=== PATIENT | male | born 1935 | race Caucasian/White ===

== ENCOUNTER → 2021-06-02 08:41 | Outpatient (CLI) | payer MEDICARE, BC, SELFPAY ==
--- NOTE | 2021-06-02 08:51 | XR_ITS ---
FINAL REPORT CLINICAL HISTORY: knee pain FINDINGS: 4 views of the left knee were obtained. There is no acute fracture or dislocation. There is marked narrowing of the medial compartment joint space with subchondral sclerosis and osteophyte formation. There is varus angulation of the knee. There are small osteophytes along the undersurface of the patella. IMPRESSION: Advanced osteoarthritis. Reviewed, Interpreted and Dictated by Handy Cade MD Transcribed by Tushar Garcia Authenticated by Handy Cade MD on 06/02/2021 10:36:[address] [facility]
--- NOTE | 2021-06-02 08:51 | XR_ITS ---
FINAL REPORT CLINICAL HISTORY: knee pain FINDINGS: 4 views of the right knee were obtained. There is no acute fracture or dislocation. There is marked narrowing of the medial compartment joint space with subchondral sclerosis and osteophyte formation. There is varus angulation of the knee. There are small osteophytes along the undersurface of the patella. IMPRESSION: Advanced osteoarthritis. Reviewed, Interpreted and Dictated by Handy Cade MD Transcribed by Tushar Garcia Authenticated by Handy Cade MD on 06/02/2021 10:36:27 AM [facility]
== END ==
PROVIDERS: PCP Physician Assistant; Visit Provider Orthopaedic Surgery
DX: M25.561 Pain in right knee (principal); M25.562 Pain in left knee
CPT/HCPCS: 73564

== ENCOUNTER 2021-07-14 09:52 | Outpatient (RCR) | payer MEDICARE, BC, SELFPAY | END 2021-07-14 10:29 | disposition home or self-care (01) | LOC: PT 09:52 | PROVIDERS: Visit Provider Orthopaedic Surgery | DX: M25.562 Pain in left knee (principal); M25.561 Pain in right knee | CPT/HCPCS: 97760 ==

== ENCOUNTER → 2021-10-12 08:32 | Outpatient (CLI) | payer MEDICARE, BC, SELFPAY ==
[2021-10-12 14:24] LABS: Chloride 104 mmol/L (98-107)
[2021-10-12 14:25] LABS: Sodium 137 mmol/L (136-145)
[2021-10-12 14:27] LABS: Alanine Aminotransferase 19 U/L (12-78); Aspartate Amino Transferase 26 U/L (17-59); Blood Urea Nitrogen 13 mg/dl (9-20); Carbon Dioxide 27 mmol/L (22.0-30.0); Estimated Glomerular Filt Rate 92 ml/min (>60); GFR (African American) 111 ML/MIN (>60)
[2021-10-12 14:28] LABS: Albumin Level 4.1 g/dl (3.5-5.0); Albumin/Globulin Ratio 1.5 (1.1-1.8); Alkaline Phosphatase 88 U/L (38-126); Bilirubin,Total 1.9 mg/dl (0.2-1.3); Calcium 10.5 mg/dl (8.4-10.2); Chol/HDL Ratio 2.8 (1-3.5); Cholesterol 156 mg/dl (140-200); Globulin 2.8 g/dL (1.3-3.2); Glucose 117 mg/dl (74-100); HDL Cholesterol 56 mg/dl (40-60); Total Protein,Serum 6.9 g/dl (6.3-8.2); Triglycerides 81 mg/dl (30-150); VLDL Cholesterol 16 mg/dL (0-40)
[2021-10-12 14:39] LABS: Direct LDL Cholesterol 75.81 mg/dL (100-129)
[2021-10-12 15:53] LABS: Anion Gap 10.5 mEq/L (5-15); Potassium 4.5 mmoL/L (3.5-5.1)
== END ==
PROVIDERS: Visit Provider Internal Medicine Cardiovascular Disease
DX: I25.10 Atherosclerotic heart disease of native coronary artery without angina pectoris (principal)
CPT/HCPCS: 36415; 80053; 80061

== ENCOUNTER → 2022-09-19 08:28 | Outpatient (CLI) | payer MEDICARE, BC, SELFPAY ==
[2022-09-19 09:39] LABS: Alanine Aminotransferase 22 U/L (12-78); Albumin Level 4.3 g/dl (3.5-5.0); Albumin/Globulin Ratio 1.7 (1.1-1.8); Alkaline Phosphatase 94 U/L (38-126); Anion Gap 13.7 mEq/L (5-15); Aspartate Amino Transferase 27 U/L (17-59); Bilirubin,Total 1.1 mg/dl (0.2-1.3); Blood Urea Nitrogen 24 mg/dl (9-20); Calcium 9.7 mg/dl (8.4-10.2); Carbon Dioxide 28 mmol/L (22.0-30.0); Chloride 103 mmol/L (98-107); Chol/HDL Ratio 2.9 (1-3.5); Cholesterol 156 mg/dl (140-200); Estimated Glomerular Filt Rate 80 ml/min (>60); GFR (African American) 97 ML/MIN (>60); Globulin 2.6 g/dL (1.3-3.2); Glucose 98 mg/dl (74-100); HDL Cholesterol 54 mg/dl (40-60); Potassium 4.7 mmoL/L (3.5-5.1); Sodium 140 mmol/L (136-145); Total Protein,Serum 6.9 g/dl (6.3-8.2); Triglycerides 118 mg/dl (30-150); VLDL Cholesterol 24 mg/dL (0-40)
[2022-09-19 09:50] LABS: Direct LDL Cholesterol 74.23 mg/dL (100-129)
== END ==
PROVIDERS: Visit Provider Nurse Practitioner Family
DX: I10 Essential (primary) hypertension (principal)
CPT/HCPCS: 36415; 80053; 80061

== ENCOUNTER 2023-09-06 08:25 | Outpatient (CLI) | payer MEDICARE, BC, SELFPAY ==
[2023-09-06 10:12] LABS: Cholesterol 179 mg/dl (140-200); HDL Cholesterol 89 mg/dl (40-60); Triglycerides 92 mg/dl (30-150); VLDL Cholesterol 18 mg/dL (0-40)
[2023-09-06 10:22] LABS: Direct LDL Cholesterol 84.63 mg/dL (100-129)
[2023-09-10 15:12] LABS: Alanine Aminotransferase 20 U/L (12-78); Albumin Level 4.1 g/dl (3.5-5.0); Albumin/Globulin Ratio 1.5 (1.1-1.8); Alkaline Phosphatase 77 U/L (38-126); Anion Gap 15.7 mEq/L (5-15); Aspartate Amino Transferase 22 U/L (17-59); Bilirubin,Total 1.4 mg/dl (0.2-1.3); Blood Urea Nitrogen 29 mg/dl (9-20); Calcium 10.9 mg/dl (8.4-10.2); Carbon Dioxide 25 mmol/L (22.0-30.0); Chloride 101 mmol/L (98-107); Estimated Glomerular Filt Rate 57 ml/min (>60); GFR (African American) 69 ML/MIN (>60); Globulin 2.8 g/dL (1.3-3.2); Glucose 98 mg/dl (74-100); Potassium 4.7 mmoL/L (3.5-5.1); Sodium 137 mmol/L (136-145); Total Protein,Serum 6.9 g/dl (6.3-8.2)
== END 2023-09-06 23:59 | disposition home or self-care (01) ==
LOC: LAB 08:27
PROVIDERS: Visit Provider Internal Medicine Cardiovascular Disease
DX: I10 Essential (primary) hypertension (principal)
CPT/HCPCS: 36415; 80053; 80061

== ENCOUNTER 2024-08-06 07:52 | Outpatient (CLI) | payer MEDICARE, BC, SELFPAY ==
[2024-08-06 09:10] LABS: Albumin Level 4.1 g/dl (3.5-5.0); Chloride 107 mmol/L (98-107); Potassium 4.8 mmoL/L (3.5-5.1); Sodium 140 mmol/L (136-145)
[2024-08-06 09:12] LABS: Blood Urea Nitrogen 20 mg/dl (9-20); Estimated Glomerular Filt Rate 63 ml/min (>60); GFR (African American) 77 ML/MIN (>60)
[2024-08-06 09:13] LABS: Alanine Aminotransferase 14 U/L (12-78); Albumin/Globulin Ratio 1.6 (1.1-1.8); Alkaline Phosphatase 81 U/L (38-126); Anion Gap 11.8 mEq/L (5-15); Aspartate Amino Transferase 22 U/L (17-59); Bilirubin,Total 1.5 mg/dl (0.2-1.3); Calcium 10.6 mg/dl (8.4-10.2); Carbon Dioxide 26 mmol/L (22.0-30.0); Globulin 2.5 g/dL (1.3-3.2); Glucose 100 mg/dl (74-100); Total Protein,Serum 6.6 g/dl (6.3-8.2)
== END 2024-08-06 23:59 | disposition home or self-care (01) ==
LOC: LAB 07:56
PROVIDERS: Visit Provider Nurse Practitioner Family
DX: I10 Essential (primary) hypertension (principal)
CPT/HCPCS: 36415; 80053

== ENCOUNTER 2024-09-30 13:32 | Outpatient (POV) | payer MEDICARE, BC, SELFPAY ==
--- OUTSIDE RECORDS SUMMARY | 2024-08-26 10:00 | XMS_ITS | Encounter Summary ---
Author Organization [facility] Address [address] [place] [address] Care Team Providers Care Lay Brother Name Role Phone Unavailable Primary Care Provider Unavailabl e Reason for Visit * Reason Comments Knee Pain Bilateral Knee Pain Encounter Details Date Type Department Care Team (Late st Contact Info) Description 08/26/2024 10:00 AM EDT Office Visit [facility] Orthopedics - [address] [phone] Yvonne Bowen PA-C [address] [place] [phone] Pain in both knees, unspecified chronicity (Primary Dx); Bilateral primary osteoarthritis of knee Social History Tobacco Use Types Packs/Day Years Used Date Smoking Tobacco: Never Smokeless Tobacco: Never Tobacco Cessation:Counseling Given: Not Answered Alcohol Use Standard Drinks/Week Comments Never 0 (1 standard drink = 0.6 oz pur e alcohol) Sex and Gender Information Value Date Recorded Sex Assigned at Not on file Legal Sex Male 2:06 PM CDT Gender Identity Not on file Sexual Orientation Not on file documented as of this encounter Last Filed Vital Signs Vital Sign Reading Time Taken Comments Blood Pressure 134/76 08/26/2024 10:33 AM EDT Pulse 64 08/26/2024 10:33 AM EDT Temperature - - Respiratory Rate - - Oxygen Saturation - - Inhaled Oxygen Concentration - - Weight 68.9 kg (152 lb) 08/26/2024 10:33 AM EDT Height 180.3 cm (5' 11 ) 08/26/2024 10:33 AM EDT Body Mass Index 21.2 08/26/2024 10:33 AM EDT documented in this encounter Progress Notes * Yvonne Bowen PA-C - 08/26/2024 10:00 AM EDT Images from the original note were not included. NAME: Annemarie Jewell CSN: [id number] : 1935 PCP: No primary care provider on file. REASON FOR VISIT Knee Pain (Bilateral Knee Pain) Is this Worker's Comp? No HPI Annemarie Jewell is a 88 y.o. male. New patient presents for bilateral knee pain. Patient reports he would like to discuss submitting for gel injections. Patient denies trauma, surgery, but has had injections in bilateral knees. Patient reports sharp pain medially and lateral to patella while standing and ambulating. Patient reports buckling of right knee. Patient reports grinding when rising from seated position. Patient denies popping or catching. Patient reports taking Tylenol for pain. Patient reports using heat, but no ice. Patient reports using Emu Blue with some relief. Patient reports wearing sleeve braces. Patient ambulates without assistance devices. He states he had hyaluronic acid injections before without relief. Patient reports 0/10 on pain scale, which increases to 7 while ambulating. CURRENT MEDICATIONS Current Outpatient Medications Medication Instructions diclofenac sodium 4 g, topical, 4 times daily metoprolol succinate (TOPROL-XL) 12.5 mg, Daily pravastatin (PRAVACHOL) 20 mg, Daily ALLERGIES No Known Allergies PAST MEDICAL/SURGICAL HISTORY Past Medical History: Diagnosis Date High cholesterol Hypertension No past surgical history on file. SOCIAL HISTORY Social History Tobacco Use Smoking status: Never Smokeless tobacco: Never Substance Use Topics Alcohol use: Never FAMILY HISTORY Family History Problem Relation Name Age of Onset Arthritis Other Gout Other REVIEW OF SYSTEMS General: No recent fever or chills, no recent weight loss or weight gain, no insomnia HEENT: No change in vision, no glasses/contacts, no hearing loss, no tinnitus, no vertigo, no congestion/sinus issues CVS: No chest pain, no palpitations, no edema, no varicose veins Resp: No dyspnea, no wheezing, no cough, no hemoptysis GI: No dysphagia, no nausea, no vomiting, no heart burn, no constipation, no diarrhea : No dysuria, no hematuria, no nocturia, no history of chronic UTI Musculoskeletal: See HPI Derm: No rash, no abrasions, no skin discoloration, no history or MRSA Neuro: See HPI Endo: No cold/heat intolerance Heme: No abnormal bruising or bleeding Psych: No depression, no anxiety, no fatigue, no mood swings Scribe Attestation: IJessica RTR acted as a scribe and transcribed components of the currentencounter under the direction of the Attending Provider. I have not been involved in providing any clinical treatments or patient care. Electronically Signed, NEVAEH Drummond OBJECTIVE Vitals: 08/26/24 1033 BP: 134/76 Pulse: 64 Weight: 68.9 kg (152 lb) Height: 1.803 m (5' 11 ) Ortho Exam Bilateral Knee Exam General: Awake, Alert, Oriented x3, Well developed Appearance: - effusion, - localized swelling, - deformity, -masses Tenderness to palpation: + Medial joint line, -Lateral joint line, - Patellofemoral joint, -MCL, -LCL, -Posterior, - Quad Tendon, - Patellar Tendon, -Hamstring, - Gastrocnemius ROM: 130 Flexion, 0 Extension, +crepitus, Strength: 4/5 Testing: -Valgus stress, -Varus stress Neurovascular: NVI, -Homans Skin: normal appearance with no discoloration or wounds Gait: abnormal , mild limp IMAGING/OUTSIDE REPORTS X-Rays were performed and interpreted today in office of bilateral knee, 2 views weight bearing revealing: X-ray knee bilateral PA and lateral 2 weightbearing views of bilateral knees performed in office reveal severe, bone on bone medial and patellofemoral joint space narrowing. Tricompartmental osteophyte formation and sclerosis of the medial joint spaces. Genu varum deformity. Vascular calcifications noted. No evidence of acute osseous abnormality. ASSESSMENT Problem List Items Addressed This Visit None Visit Diagnoses Pain in both knees, unspecified chronicity - Primary Relevant Medications diclofenac sodium 1 % gel Other Relevant Orders X-ray knee bilateral PA and lateral (Completed) Bilateral primary osteoarthritis of knee Relevant Medications diclofenac sodium 1 % gel I discussed with patient in depth the options for treatment of osteoarthritis of the knee. Treatment options that include gentle, low-impact exercise, weight loss, physical therapy to promote quadriceps strengthening, the use of NSAIDs, intra-articular steroid injections, viscosupplementation, and genicular nerve blocks were all discussed. I also discussed that if all conservative measures fail to provide satisfactory relief of symptoms, we can discuss surgical options to include arthroplasty of the knee. PLAN Return if symptoms worsen or fail to improve. Rest Ice Elevate Return to Clinic if new or worse symptoms occur Topical medication ordered WBAT Hold on ORDONEZ injections due to prior history of little relief with ORDONEZ injections. He would like to try topical medication instead. Will call if his pain worsens Scribe Attestation: Sinan Sanchez RTR acted as a scribe and transcribed components of the current encounter under the direction of the Attending Provider. I have not been involved in providing any clinical treatments or patient care. Electronically Signed, NEVAEH Amador Taylor Elam, PA-C attest that I have examined the above patient. I have dictated the exam, diagnosis, and plan to the scribe listed above to be transcribed into this document. I have supplemented the above documentation as warranted. I attest that I have reviewed the above documentation in its entirety and concur. Electronically Signed, Yvonne Bowen PA-C 08/26/2024 1:38 PM EDT Pradeep Hall: Skylar ANDRADE / JESS is undergoing an EHR transition as of this date of service. There may be a delay in uploading older paper and EHR chart data to this new system. The above encounter has been documented to the best of the provider's working knowledge of the EHR in conjunction with medical information provided by the patient (and/or the patient's family member). documented in this encounter Plan of Treatment Not on file documented as of this encounter Procedures Procedure Name Priority Date/Time Associated Diagnosis Comments XR KNEE BILATERAL PA AND LATERAL Routine 08/26/2024 10:30 AM EDT Pain in both knees, unspecified chronicity documented in this encounter Results * X-ray knee bilateral PA and lateral (08/26/2024 10:30 AM EDT) Anatomical Region Laterality Modality Thigh, Knee, Leg X-Ray Narrative 08/26/2024 11:28 AM EDT 2 weightbearing views of bilateral knees performed in office reveal severe, bone on bone medial and patellofemoral joint space narrowing. Tricompartmental osteophyte formation and sclerosis of the medial joint spaces. Genu varum deformity. Vascular calcifications noted. No evidence of acute osseous abnormality. us Yvonne Bowen PA-C IMSteve DIAGNOSTIC IMAGING ORDERABL ES Final Result documented in this encounter Visit Diagnoses Diagnosis Pain in both knees, unspecified chronicity- Primary Bilateral primary osteoarthritis of knee documented in this encounter
--- OUTSIDE RECORDS SUMMARY | 2024-08-26 10:25 | XMS_ITS | Encounter Summary ---
Author Organization [facility] Address [address] [place] [address] Care Team Providers Care Analyst Sales Name Role Phone Unavailable Primary Care Provider Unavailabl e Encounter Details Date Type Department Care Team (Late st Contact Info) Description 08/26/2024 10:25 AM EDT Ancillary Procedure [facility] Orthopedics - [address] [phone] Yvonne Bowen PA-C [address] [place] [address] Social History Tobacco Use Types Packs/Day Years Used Date Smoking Tobacco: Never Smokeless Tobacco: Never Alcohol Use Standard Drinks/Week Comments Never 0 (1 standard drink = 0.6 oz pur e alcohol) Sex and Gender Information Value Date Recorded Sex Assigned at Not on file Legal Sex Male 2:06 PM CDT Gender Identity Not on file Sexual Orientation Not on file documented as of this encounter Plan of Treatment Not on [...] Result documented in this encounter Visit Diagnoses Not on filedocumented in this encounter
--- OUTSIDE RECORDS SUMMARY | 2024-09-30 13:37 | XMS_ITS | Clinical Summary ---
Author Organization [employer] In [facility] Address [address] [place] [address] Care Team Providers Care Die Repairer Stamping Name Role Phone Unavailable Primary Care Provider Unavailabl e Allergies No known active allergies Medications metoprolol succinate (TOPROL-XL) 25 MG 24 hr tablet Take 0.5 tablets (12.5 mg total) by mouth daily. Active pravastatin (PRAVACHOL) 20 MG tablet Take 1 tablet (20 mg total) by mouth daily. 5 Active diclofenac sodium 1 % gelIndications:Vale n in both knees, unspecified chronicity,Bilater al primary osteoarthritis of knee Apply 4 g topically 4 (four) times daily. 100 g 2 5 Active Encounters Date Type Department Care Team Description 08/26/2024 10:25 AM EDT Ancillary Procedure [address] [phone] Yvonne Bowen PA-C 08/26/2024 10:00 AM EDT Office Visit [address] [phone] Yvonne Bowen PA-C Pain in both knees, unspecified chronicity (Primary Dx); Bilateral primary osteoarthritis of knee from Last 3 Months Family History Medical History Relation Name Comments Arthritis Other Gout Other Relation Name Status Comments Other Social History Tobacco Use Types Packs/Day Years [...] on file Sexual Orientation Not on file Last Filed Vital Signs Vital Sign Reading [...] Mass Index 21.2 08/26/2024 10:33 AM EDT Plan of Treatment Health Maintenance Due Date Last Done Comments Depression Screening (12+) 1947 DTAP/TDAP/TD VACCINES (1 - Tdap) 08/30/1955 Shingles Vaccine (Zoster) (1 of 2) 1986 Medicare Initial AWV [id number] 08/07/2002 Respiratory Syncytial Virus (RSV) Adult or (1 - 1-dose 75+ series) 08/30/2011 COVID-19 VACCINE ( - 2023-2 5 season) 2023 01/10/2022, 08/17/2021, 02/02/2021, Additional history exists Falls Risk Screening 04/08/2024 Influenza Vaccine (Season Ended) 2024 01/10/2022, 01/27/2021, 01/23/2020, Additional history exists Tobacco Cessation Counseling and Screening (12+) 08/26/2025 08/26/2024 Pneumococcal 50+ years Completed 01/23/2020, 2016 Procedures Procedure Name Priority Date/Time Associated Diagnosis Comments XR KNEE BILATERAL PA AND LATERAL Routine 08/26/2024 10:30 AM EDT Pain in both knees, unspecified chronicity from Last 3 Months Results * X-ray knee bilateral PA and [...] noted. No evidence of acute osseous abnormality. Yvonne Bowen PA-C IMG DIAGNOSTIC IMAGING ORDERABL ES Final Result from Last 3 Months Insurance [facility] MEDICARE PART A B
--- OUTSIDE RECORDS SUMMARY | 2024-09-30 13:37 | XMS_ITS | Clinical Summary ---
Author Organization [facility] Address [address] [place] [address] Care Team Providers Care Insulation Extruder Operator Name Role Phone Unavailable Primary Care Provider Unavailabl e Social History Tobacco Use Types Packs/Day Years Used Date Smoking Tobacco: Never Assessed Sex and Gender Information Value Date Recorded Sex Assigned at Not on file Legal Sex Male 7:35 PM EDT Gender Identity Not on file Sexual Orientation Not on file Plan of Treatment Health Maintenance Due Date Last Done Comments Dental Oral Exam 1935 Dental Prophylaxis 1935 Dental X-Ray: Bitewings 1936 Dental X-Ray: Full Mouth 1935 [facility]-Depression Screening 1935 [facility]-/Child/Adol SDOH Screenings 1935 [facility]- SDOH Screenings 1954 [facility]-Adult SDOH Screenings 1954 [facility]-DTaP,Tdap,and Td Vaccine s (1 - Tdap) 08/30/1955 [facility]-Pneumococcal Vaccine: 50 + Years (1 of 1 - PCV) 1986 [facility]-Zoster Vaccines (1 of 2) 1986 [facility]-RSV Vaccine: 60+ Years o r (1 - 1-dose 75+ series) 08/30/2011 [id number] Vaccine (1 - 20 24-25 season) 2023 [facility]-Influenza Vaccine (Seas[place] n Ended) 2024 HPV Vaccines Aged Out No longer eligi ble based on patient's age to complete this topic [facility]-HIB Vaccines Aged Out No longer e ligible based on patient's age to complete this topic [facility]-Hepatitis A Vaccines Aged Out No longer eligible based on patient's age to complete this topic [facility]-IPV Vaccines Aged Out No longer e ligible based on patient's age to complete this topic [facility]-Rotavirus Vaccines Aged Out No lo nger eligible based on patient's age to complete this topic
--- OUTSIDE RECORDS SUMMARY | 2024-09-30 13:37 | XMS_ITS | Referral Summary ---
Author Organization [facility] Address [address] [place] [address] Care Team Providers Care Divinity Teacher Name Role Phone Unavailable Primary Care Provider Unavailabl e Encounters Date Type Department Care Team Description 08/26/2024 10:25 AM EDT Ancillary Procedure [address] [phone] Yvonne Bowen PA-C 08/26/2024 10:00 AM EDT Office Visit [address] [phone] Yvonne Bowen PA-C Pain in both knees, unspecified chronicity (Primary Dx); Bilateral primary osteoarthritis of knee from Last 3 Months Allergies No known active allergies Medications metoprolol succinate (TOPROL-XL) 25 MG 24 hr tablet Take 0.5 tablets (12.5 mg total) by mouth daily. 5 Active pravastatin (PRAVACHOL) 20 MG tablet Take 1 tablet (20 mg total) by mouth daily. 5 Active diclofenac sodium 1 % gelIndications:Vale n in both knees, unspecified chronicity,Bilater al primary osteoarthritis of knee Apply 4 g topically 4 (four) times daily. 100 g 2 5 Active Social History Tobacco Use Types Packs/Day Years [...] 08/26/2024 10:33 AM EDT Plan of Treatment Not on file Procedures Procedure Name Priority Date/Time Associated Diagnosis [...] of acute osseous abnormality. Yvonne Bowen PA-C IMSteve DIAGNOSTIC IMAGING ORDERABL ES Final Result from Last 3 Months Insurance [facility] MEDICARE PART A B
[2024-09-30 13:50] VITALS: BP 118/68; PULSE 58; RESP 16; O2SAT 97; BMI 20.7
--- NOTE | 2024-09-30 14:26 | EXP.PAIN.OV ---
HPI Data of Consult Patient: new to practice Consult date: 09/30/24 Requesting Physician: Mayra Noriega APRN Primary Care Provider: Referral Provider, Reason for consult: Bilateral knee pain History of present illness: Mr. Jewell is a 89 year old male who presents today as a new patient. Today he rates his pain a 5 out of 10 when he is up walking moving and A0 while he is seated. Patient states he has chronic pain in his knees that is been going on for decades. 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 He describes it as a constant aching sensation that is worse with increased activity and does interfere with his ability to perform activities of daily living such as cooking and cleaning. Patient has tried oral medications along with heat and ice and topicals with minimal improvement. Patient has also continued at home exercising and stretching for longer than 12 weeks with no additional improvement. Patient has had injections into his knees in the past and does state they did help however the last time he did not notice as much improvement along the left side. Patient has not had any injections for longer than 6 months. Patient denies any knee surgery and does state with his age that he is trying to avoid this at all cost. Patient is interested in any help we may be able to provide. His Martin has been reviewed and is appropriate. Pain at rest (0-10 scale): 5 Has patient had previous pain injection?: No Conservative treatment options previously tried: Home exercise plan (Longer than 12 weeks) cc:: CC: Mayra Noriega APRN [facility] Disclaimer: The information contained in this section may have been updated after the patient was seen, as this information can be updated by other users. Surgical History History of tonsillectomy Social History Smoking Status: Never smoker alcohol intake: never current occupational status: retired Travel in the last 8 weeks?: None Review of Systems Review of Systems Review of systems:: pertinent systems reviewed and negative unless documented below Review of systems (narrative): Review of Systems: General: No recent weight changes, no fever, no sleep disturbances Respiratory: No cough, no shortness of air, no recurring pulmonary infections Cardiovascular/peripheral vascular: No chest pain, no palpitations, no edema, no shortness of breath Gastrointestinal: No new onset incontinence, normal bowel movements reported Genitourinary: No new onset incontinence Musculoskeletal: Bilateral knee pain Psychiatric: [Normal mood/affect] Neurological: [Denies weakness in extremities], [denies balance issues] Meds Home Medications and Allergies Home Medications ?Medication ?Instructions ?Recorded ?Confirmed ?Type metoprolol succinate 25 mg 12.5 mg PO DAILY 06/14/22 09/30/24 History tablet,extended release 24 hr pravastatin 20 mg tablet 20 mg PO DAILY 06/14/22 09/30/24 History allopurinol 300 mg tablet 300 mg PO DAILY #30 tabs 11/12/23 09/30/24 Rx diclofenac sodium 1 % topical gel 1 ea topical QID PRN Pain, Mild 09/30/24 09/30/24 History New Prescriptions to Start Prescriptions: Allergies Allergy/AdvReac Type Severity Reaction Status Date / Time bacitracin (From NEOSPORIN Allergy Mild IRRITATION Unverified 11/12/23 13:55 ([id number])) neomycin (From NEOSPORIN Allergy Mild Unverified 11/12/23 13:55 ([id number])) polymyxin B (From NEOSPORIN Allergy Mild Unverified 11/12/23 13:55 ([id number])) Objective Narrative: Physical Exam: General: Alert and oriented x3, no acute distress, pleasant and cooperative Lungs: Respirations even and unlabored, symmetrical chest expansion Eyes: PERRL Musculoskeletal: Flexion and extension of bilateral knees somewhat guarded secondary to pain, [antalgic gait noted] Neurological: Speech clear, no gross sensory deficit Assessment and Plan *Assessment and plan (1) Osteoarthritis of left knee: Status: Acute Qualifiers: Osteoarthritis type: primary Qualified Code(s): M17.12 - Unilateral primary osteoarthritis, left knee Category: Medical Code(s): M17.12 - Unilateral primary osteoarthritis, left knee (2) Osteoarthritis of right knee: Status: Acute Qualifiers: Osteoarthritis type: primary Qualified Code(s): M17.11 - Unilateral primary osteoarthritis, right knee Category: Medical Code(s): M17.11 - Unilateral primary osteoarthritis, right knee (3) Chronic pain of both knees: Status: Acute Category: Medical Code(s): M25.561 - Pain in right knee; M25.562 - Pain in left knee; G89.29 - Other chronic pain Plan Patient is experiencing significant pain in his bilateral knees with limited range of motion. I did discuss with the patient that I would recommend intra-articular knee injections. Risk and benefits were discussed with patient and he would like to proceed forward with this plan of care. Patient has tried and failed conservative therapy including oral medication, heat and ice, topicals, at home stretching exercises for longer than 12 weeks. Patient has been seen by orthopedics and was not being recommended for surgical intervention. Patient will be scheduled for bilateral intra-articular knee injections without fluoroscopic or ultrasound guidance. Patient has not had any knee injections since November 2023 that did provide more than 50% relief. Patient has had chronic knee pain for longer than a year. Patient has been instructed to contact the clinic with any concerns before the next appointment. Dr. Cuellar has reviewed this note and agrees with this plan of care. This note was dictated using voice recognition software and make contain errors or omissions. All injections are used with Lidocaine, Bupivacaine and dexamethasone. Occasionally urine drug screen is needed to verify patient's compliance with our office pain contract. This is ordered based off specific treatments related to chronic pain with the potential to abuse certain medications.
== END 2024-09-30 23:59 | disposition home or self-care (01) ==
LOC: SC.PAIN 13:35
PROVIDERS: Visit Provider Nurse Practitioner Family
DX: M17.0 Bilateral primary osteoarthritis of knee (principal); G89.29 Other chronic pain
CPT/HCPCS: 99202; G0463

== ENCOUNTER 2024-10-06 07:20 | Outpatient (CLI) | payer MEDICARE, BC, SELFPAY ==
--- OUTSIDE RECORDS SUMMARY | 2024-08-26 10:00 | XMS_ITS | Encounter Summary ---
Author Organization [facility] [employer] [facility] ([place], [place], [place], [place]) Address [address] [place] [address] Care Team Providers Care Bilingual Account Manager Name Role Phone Unavailable Primary Care Provider Unavailabl e Reason for Visit * Reason Comments Knee Pain Bilateral Knee Pain Encounter Details Date Type Department Care Team (Late st Contact Info) Description 08/26/2024 10:00 AM EDT Office Visit [facility] Orthopedics - [address] [phone] Yvonne Bowen PA-C [address] [place] [address] Pain in both knees, unspecified chronicity (Primary [...] were not included. NAME: Annemarie Jewell CSN: [id number] : 1935 PCP: No primary care provider [...] no fatigue, no mood swings Scribe Attestation: I, NEVAEH Drummond acted as a scribe and transcribed components [...] acute osseous abnormality. us Yvonne Bowen PA-C IMG DIAGNOSTIC IMAGING ORDERABL ES Final Result documented in this encounter Visit Diagnoses Diagnosis Pain in both knees, unspecified chronicity- Primary Bilateral primary osteoarthritis of knee documented in this encounter
--- OUTSIDE RECORDS SUMMARY | 2024-08-26 10:25 | XMS_ITS | Encounter Summary ---
Author Organization [employer] ([place], [place], [place], [place]) Address [address] [place] [address] Care Team Providers Care Hedge Fund Principal Name Role Phone Unavailable Primary Care Provider Unavailabl e Encounter Details Date Type Department Care Team (Late st Contact Info) Description 08/26/2024 10:25 AM EDT Ancillary Procedure [facility] Orthopedics - [address] [phone] Yvonne Bowen PA-C [address] [place] [phone] Social History Tobacco Use Types Packs/Day Years [...]
--- OUTSIDE RECORDS SUMMARY | 2024-10-06 07:24 | XMS_ITS | Clinical Summary ---
Author Organization Healthcare Address [address] [place] [address] Care Team Providers Care Incident Response Analyst Name Role Phone Unavailable Primary Care Provider Unavailabl e Social History Tobacco Use Types Packs/Day Years Used Date Smoking Tobacco: Never Assessed Sex and Gender Information Value Date Recorded Sex Assigned at Not on file Legal Sex Male 7:35 PM EDT Gender Identity Not on file Sexual Orientation Not on file Plan of Treatment Health Maintenance Due Date Last Done Comments [facility]-Depression Screening 1936 [facility]-/Child/Adol SDOH Screenings 1936 [facility]- SDOH Screenings 1954 [facility]-Adult SDOH Screenings 1954 [facility]-DTaP,Tdap,and Td Vaccine s (1 - Tdap) 08/30/1955 [facility]-Pneumococcal Vaccine: 50 + Years (1 of 1 - PCV) 1986 [facility]-Zoster Vaccines (1 of 2) 1986 [facility]-RSV Vaccine: 60+ Years o r (1 - 1-dose 75+ series) 08/30/2011 [id number] Vaccine (1 - 20 24-25 season) 2023 [...]
--- OUTSIDE RECORDS SUMMARY | 2024-10-06 07:24 | XMS_ITS | Referral Summary ---
Author Organization [employer] ([place], [place], [place], [place]) Address [address] [place] [address] Care Team Providers Care Director Of Casino Name Role Phone Unavailable Primary Care Provider Unavailabl e Encounters Date Type Department Care Team Description 08/26/2024 10:25 AM EDT Ancillary Procedure [facility] [address] [address] Yvonne Bowen PA-C 08/26/2024 10:00 AM EDT Office Visit [address] [address] Yvonne Bowen PA-C Pain in both knees, [...] No evidence of acute osseous abnormality. Yvonne GUTIERREZ DIAGNOSTIC IMAGING ORDERABL ES Final Result from Last 3 Months Insurance [facility] SUP[facility] MEDICARE PART A B
--- OUTSIDE RECORDS SUMMARY | 2024-10-06 07:24 | XMS_ITS | Clinical Summary ---
Author Organization [employer] ([place], [place], [place], [place]) Address [address] [place] [address] Care Team Providers Care Package Wrapper Name Role Phone Unavailable Primary Care Provider [...] Description 08/26/2024 10:25 AM EDT Ancillary Procedure [address] [address] Yvonne Bowen PA-C 08/26/2024 10:00 AM EDT Office Visit [address] [address] Yvonne Bowen PA-C Pain in both knees, [...] - 1-dose 75+ series) 08/30/2011 COVID-19 VACCINE (2023-2 5 season) 2023 01/10/2022, 08/17/2021, 02/02/2021, Additional [...] Final Result from Last 3 Months Insurance [facility] MEDICARE PART A B
[2024-10-06 08:26] LABS: Cholesterol 149 mg/dl (140-200); HDL Cholesterol 59 mg/dl (40-60); Magnesium 1.7 mg/dl (1.6-2.3); Triglycerides 82 mg/dl (30-150)
[2024-10-06 08:43] LABS: Free Thyroxine Index 5.8 ug/dL (5.93-13.13); T4 (Thyroxine) 15.2 ug/dl (5.53-11.0); Triiodothryronine (T3) Uptake 38 % (23.5-40.5)
[2024-10-06 08:44] LABS: Free T4 (Free Thyroxine) 2.44 ng/dl (0.78-2.19)
[2024-10-06 08:57] LABS: Thyroid Stimulating Hormone < 0.02 uIU/mL (0.465-4.68)
[2024-10-06 08:58] LABS: Thyroid Stimulating Hormone < 0.02 uIU/mL (0.465-4.68)
== END 2024-10-06 23:59 | disposition home or self-care (01) ==
LOC: LAB 07:22
PROVIDERS: Visit Provider Internal Medicine Cardiovascular Disease
DX: I10 Essential (primary) hypertension (principal)
CPT/HCPCS: 36415; 80061; 83735; 84436; 84439; 84443; 84479

== ENCOUNTER 2024-10-16 14:03 | Day surgery (SDC) | payer MEDICARE, BC, SELFPAY ==
[2024-10-16 14:27] VITALS: BP 139/58; PULSE 53; RESP 16; RESP 18; O2SAT 97; BMI 21.9
[2024-10-16 14:37] VITALS: BP 143/77; PULSE 48; RESP 18; O2SAT 100
[2024-10-16] MEDS: BUPIVACAINE 0.25% 10ML INJ 25 MG IJ (14:49)
[2024-10-16] MEDS: DEXAMETHASONE 10MG/ML 1ML VIAL 10 MG (14:49)
[2024-10-16] MEDS: LIDOCAINE 1% 5ML PF VIAL 5 ML (14:50)
[2024-10-16 14:55] VITALS: BP 139/58; PULSE 53; RESP 18; O2SAT 97
--- NOTE | 2024-10-16 15:47 | EXP.PAIN.PRO ---
Procedure Date: 10/16/24 Time: 15:47 Anesthesiologist:: Zelalem Cuellar MD Complications:: None Pre-procedure Diagnosis:: Bilateral knee joint pain with degenerative osteoarthritis both knees Post-procedure Diagnosis:: Same Indications for Procedure:: This patient is a pleasant 89-year-old white male who we are treating for bilateral knee joint pain with degenerative osteoarthritis of both knees. He presents for bilateral intra-articular knee injections today. Procedure Details:: Informed consent was obtained the risk and benefits of the procedure were explained to the patient. The patient was taken the procedure room. Both knees were prepped using ChloraPrep. A 25-gauge needle was used medially and laterally to inject 5 mL lidocaine 1% and dexamethasone 10 mg into each knee. The patient tolerated the procedure well with no complications. Plan and Disposition:: Will follow-up with this patient in 2 weeks. Will evaluate efficacy of these injections and will reevaluate symptoms at that time.
== END 2024-10-16 14:37 | disposition home or self-care (01) ==
LOC: SC.PAINP 14:04
PROVIDERS: Visit Provider Anesthesiology
DX: M17.0 Bilateral primary osteoarthritis of knee (principal); Z88.8 Allergy status to other drugs, medicaments and biological substances; Z79.899 Other long term (current) drug therapy
CPT/HCPCS: 20610; J0665; J1100; J2003

== ENCOUNTER 2024-11-02 11:29 | Outpatient (POV) | payer MEDICARE, BC, SELFPAY ==
--- OUTSIDE RECORDS SUMMARY | 2024-11-02 11:37 | XMS_ITS | Clinical Summary ---
Author Organization Healthcare Address [address] [place] [address] Care Team Providers Care Sales Representative Graphic Art Name Role Phone Unavailable Primary Care Provider [...] r (1 - 1-dose 75+ series) 08/30/2011 [id number] Vaccine (1 - 20 24-25 season) 2023 [facility]-Influenza Vaccine (#1) 2024 HPV Vaccines Aged Out No longer [...]
--- OUTSIDE RECORDS SUMMARY | 2024-11-02 11:37 | XMS_ITS | Referral Summary ---
Author Organization [employer] ([place], [place], [place], [place]) Address [address] [place] [address] Care Team Providers Care Shrimp Picker Name Role Phone Unavailable Primary Care Provider Unavailabl e Encounters Date Type Department Care Team Description 08/26/2024 10:25 AM EDT Ancillary Procedure [facility] [address] [address] Yvonne Bowen PA-C 08/26/2024 10:00 AM EDT Office Visit [address] [address] Yvonne Bowen PA-C Pain in both knees, [...] Final Result from Last 3 Months Insurance [facility]SE [facility] [place] [id number] MEDICARE PART A B
--- OUTSIDE RECORDS SUMMARY | 2024-11-02 11:37 | XMS_ITS | Clinical Summary ---
Author Organization [employer] ([place], [place], [place], [place]) Address [address] [place] [address] Care Team Providers Care Grocery Supervisor Name Role Phone Unavailable Primary Care Provider [...] Description 08/26/2024 10:25 AM EDT Ancillary Procedure [address] [address] Yvonne Bowen PA-C 08/26/2024 10:00 AM EDT Office Visit [address] [phone] Yvonne Bowen PA-C Pain in both knees, [...] exists Falls Risk Screening 04/08/2024 Influenza Vaccine (#1) 2024 , 01/27/2021, 01/23/2020, Additional history exists Tobacco Cessation [...] Final Result from Last 3 Months Insurance [facility] MEDICARE PART A B
--- NOTE | 2024-11-02 12:05 | EXP.PAIN.SOA ---
[facility] Disclaimer: The information contained in this section may have been updated after the patient was seen, as this information can be updated by other users. Surgical History History of tonsillectomy Social History Smoking Status: Never smoker alcohol intake: never current occupational status: retired Travel in the last 8 weeks?: None Have you lived/traveled outside US in past 30 days?: No Contact w/someone who lives/traveled outside US past 30 days?: No Exposure to someone with infectious disease in past 14 days?: No Do you have a fever (greater than 100.4 F or 38 C)?: No Have you tested positive for COVID-19?: No Exposed to someone with COVID-19 in past 14 days?: No Do you have a sore throat?: No Do you have a cough?: No Do you have any weakness?: No Do you have any diarrhea?: No Are you experiencing any unusual bleeding?: No Do you have any muscle aches/pain?: No Do you have any abdominal pain?: No Are you experiencing loss of taste or smell?: No PM Subjective & Objective Subjective Subjective:: Patient is a pleasant 89-year-old male who presents today for follow-up of his bilateral intra-articular knee injections on 10/16/2024. Today he does right he had 100% improvement following these injections however it really was very temporary. He states the pain is still there at his knees when he is up walking moving. Patient does make mention that he is waiting to follow-up with cardiology for a nuclear stress test. He states in the past that he did have a 50% blockage. Patient does state today that he really was wanting to see about getting prescribed diclofenac but that has improved his chronic knee pain. His Martin has been reviewed and is appropriate. Review of Systems: General: No recent weight changes, no fever, no sleep disturbances Respiratory: No cough, no shortness of air, no recurring pulmonary infections Cardiovascular/peripheral vascular: No chest pain, no palpitations, no edema, no shortness of breath Gastrointestinal: No new onset incontinence, normal bowel movements reported Genitourinary: No new onset incontinence Musculoskeletal: Bilateral knee pain Psychiatric: [Normal mood/affect] Neurological: [Denies weakness in extremities], [denies balance issues] Pain at rest (0-10 scale): 8 Objective Objective:: Physical Exam: General: Alert and oriented x3, no acute distress, pleasant and cooperative Lungs: Respirations even and unlabored, symmetrical chest expansion Eyes: PERRL Musculoskeletal: Flexion and extension of bilateral knees somewhat guarded secondary to pain, [antalgic gait noted] Neurological: Speech clear, no gross sensory deficit Has patient had previous pain injection?: Yes Percent improvement in pain since last injection: 100% while numb Conservative treatment options previously tried: Home exercise plan Length of treatment: Longer than 12 weeks Meds Home Medications and Allergies Home Medications ?Medication ?Instructions ?Recorded ?Confirmed ?Type metoprolol succinate 25 mg 12.5 mg PO DAILY 06/14/22 10/16/24 History tablet,extended release 24 hr pravastatin 20 mg tablet 20 mg PO DAILY 06/14/22 10/16/24 History allopurinol 300 mg tablet 300 mg PO DAILY #30 tabs 11/12/23 10/16/24 Rx diclofenac sodium 1 % topical gel 1 ea topical QID PRN Pain, Mild 09/30/24 10/16/24 History New Prescriptions to Start Prescriptions: Allergies Allergy/AdvReac Type Severity Reaction Status Date / Time bacitracin (From NEOSPORIN Allergy Mild IRRITATION Unverified 11/12/23 13:55 ([id number])) neomycin (From NEOSPORIN Allergy Mild Unverified 11/12/23 13:55 ([id number])) polymyxin B (From NEOSPORIN Allergy Mild Unverified 11/12/23 13:55 ([id number])) Assessment and Plan *Assessment and plan (1) Chronic pain of both knees: Status: Acute Category: Medical Code(s): M25.561 - Pain in right knee; M25.562 - Pain in left knee; G89.29 - Other chronic pain (2) Osteoarthritis of left knee: Status: Acute Qualifiers: Osteoarthritis type: primary Qualified Code(s): M17.12 - Unilateral primary osteoarthritis, left knee Category: Medical Code(s): M17.12 - Unilateral primary osteoarthritis, left knee (3) Osteoarthritis of right knee: Status: Acute Qualifiers: Osteoarthritis type: primary Qualified Code(s): M17.11 - Unilateral primary osteoarthritis, right knee Category: Medical Code(s): M17.11 - Unilateral primary osteoarthritis, right knee Plan I did discuss with the patient due to only having temporary relief with these injections and that he may benefit from infrapatellar nerve blocks. Risk and benefits were discussed with the patient that at this time he would like to wait and make sure everything is good with his heart. I did discuss with patient due to the fact that he is having follow-ups with cardiology and has a history of cardiac issues that it is not recommended that he be on a daily anti-inflammatory like diclofenac. I did recommend Tylenol arthritis and that he is he ended up talking to cardiology and they gave the allCLEAR for this medication that they could send us a note and then I would prescribe a temporary dose. Patient acknowledges understanding. He will call us for his next appointment. Patient has been instructed to contact the clinic with any concerns before the next appointment. Dr. Cuellar has reviewed this note and agrees with this plan of care. This note was dictated using voice recognition software and make contain errors or omissions. All injections are used with Lidocaine, Bupivacaine and dexamethasone. Occasionally urine drug screen is needed to verify patient's compliance with our office pain contract. This is ordered based off specific treatments related to chronic pain with the potential to abuse certain medications.
[2024-11-02 12:53] VITALS: BP 132/90; PULSE 56; RESP 18; O2SAT 98; BMI 20.5
== END 2024-11-02 23:59 | disposition home or self-care (01) ==
LOC: SC.PAIN 11:30
PROVIDERS: Visit Provider Nurse Practitioner Family
DX: M17.0 Bilateral primary osteoarthritis of knee (principal); G89.29 Other chronic pain
CPT/HCPCS: 99202; G0463

== ENCOUNTER 2024-11-17 07:56 | Outpatient (CLI) | payer MEDICARE, BC, SELFPAY ==
--- OUTSIDE RECORDS SUMMARY | 2024-11-17 07:59 | XMS_ITS | Referral Summary ---
Author Organization [employer] ([place], [place], [place], [place]) Address [address] [place] [address] Care Team Providers Care Floating Operator Name Role Phone Unavailable Primary Care Provider Unavailabl e Encounters Date Type Department Care Team Description 08/26/2024 10:25 AM EDT Ancillary Procedure [facility] [address] [address] Yvonne Bowen PA-C 08/26/2024 10:00 AM EDT Office Visit [address] [address] Yvonne Bowen PA-C Pain in both knees, [...] Final Result from Last 3 Months Insurance [facility]SE [facility]AN [facility] SUPPL MEDICARE PART A B
--- OUTSIDE RECORDS SUMMARY | 2024-11-17 07:59 | XMS_ITS | Clinical Summary ---
Author Organization [employer] ([place], [place], [place], [place]) Address [address] [place] [address] Care Team Providers Care Adhesive Bandage Making Operator Name Role Phone Unavailable Primary Care [...] Description 08/26/2024 10:25 AM EDT Ancillary Procedure [address] [address] Yvonne Bowen PA-C 08/26/2024 10:00 AM EDT Office Visit [address] [address] Yvonne Bowen PA-C Pain in both knees, [...] Final Result from Last 3 Months Insurance [facility] MEDICARE PART A B
--- OUTSIDE RECORDS SUMMARY | 2024-11-17 07:59 | XMS_ITS | Clinical Summary ---
Author Organization Healthcare Address [address] [place] [address] Care Team Providers Care Riverboat Captain Name Role Phone Unavailable Primary Care Provider [...] Date Last Done Comments [facility]-Depression Screening 1936 [facility]-Infant/Child/Adol SDOH Screenings 1936 [facility]- SDOH Screenings 1954 [facility]-Adult SDOH Screenings 1954 [facility]-DTaP,Tdap,and Td Vaccine s (1 - Tdap) 08/30/1955 [facility]-Pneumococcal Vaccine: 50 + Years (1 of 1 - PCV) 1986 [facility]-Zoster Vaccines (1 of 2) 1986 [facility]-RSV Vaccine: 60+ Years o r (1 - 1-dose 75+ series) 08/30/2011 [id number] Vaccine (1 - 20 24-25 season) 2023 [...]
[2024-11-17 08:30] LABS: Hematocrit 35.0 % (42.0-52.0); Hemoglobin 11.4 g/dL (14.1-18.0); Immature Granulocytes % 0.2 %; Mean Corpuscular HGB Conc 32.6 g/dL (31.8-35.4); Mean Corpuscular Hemoglobin 29.5 pg (27.0-31.2); Mean Corpuscular Volume 90.4 fl (80-94); Nucleated Red Blood Cells % 0 %; Platelet Count 176 K/mm3 (142-424); Red Blood Count 3.87 M/mm3 (4.60-6.20); Red Cell Distribution Width-SD 44.8 fL; White Blood Count 5.5 K/mm3 (4.8-10.8)
[2024-11-17 09:29] LABS: Albumin Level 4.0 g/dl (3.5-5.0); Chloride 104 mmol/L (98-107); Sodium 138 mmol/L (136-145)
[2024-11-17 09:30] LABS: Potassium 4.6 mmoL/L (3.5-5.1)
[2024-11-17 09:32] LABS: Alanine Aminotransferase 12 U/L (12-78); Albumin/Globulin Ratio 1.6 (1.1-1.8); Alkaline Phosphatase 87 U/L (38-126); Anion Gap 10.6 mEq/L (5-15); Aspartate Amino Transferase 20 U/L (17-59); Bilirubin,Total 1.3 mg/dl (0.2-1.3); Blood Urea Nitrogen 22 mg/dl (9-20); Carbon Dioxide 28 mmol/L (22.0-30.0); Cholesterol 133 mg/dl (140-200); Creatinine,Serum 1.00 mg/dl (0.66-1.25); Estimated Glomerular Filt Rate 71 ml/min (>60); GFR (African American) 85 ML/MIN (>60); Globulin 2.5 g/dL (1.3-3.2); Total Protein,Serum 6.5 g/dl (6.3-8.2); Triglycerides 49 mg/dl (30-150)
[2024-11-17 09:33] LABS: Calcium 9.6 mg/dl (8.4-10.2); Glucose 101 mg/dl (74-100); HDL Cholesterol 63 mg/dl (40-60)
== END 2024-11-17 23:59 | disposition home or self-care (01) ==
LOC: LAB 07:57
PROVIDERS: Visit Provider Internal Medicine Cardiovascular Disease
DX: I10 Essential (primary) hypertension (principal)
CPT/HCPCS: 36415; 80053; 80061; 85025

== ENCOUNTER 2024-11-27 07:47 | Outpatient (CLI) | payer MEDICARE, BC, SELFPAY ==
--- OUTSIDE RECORDS SUMMARY | 2024-11-27 07:51 | XMS_ITS | Referral Summary ---
Author Organization [employer] ([place], [place], [place], [place]) Address [address] [place] [address] Care Team Providers Care Specialty Finishing Utility Person Name Role Phone Unavailable Primary Care Provider [...] EDT Plan of Treatment Not on file Insurance [facility] MEDICARE PART A B
--- OUTSIDE RECORDS SUMMARY | 2024-11-27 07:51 | XMS_ITS | Clinical Summary ---
Author Organization [employer] ([place], [place], [place], [place]) Address [address] [place] [address] Care Team Providers Care Bottle Labeler Name Role Phone Unavailable Primary Care Provider [...] times daily. 100 g 2 5 Active Family History Medical History Relation Name Comments [...] 08/26/2024 Pneumococcal 50+ years Completed 01/23/2020, 2016 Insurance [place], [place] [id number] [place] [place] [address] MEDICARE PART A B
--- OUTSIDE RECORDS SUMMARY | 2024-11-27 07:51 | XMS_ITS | Clinical Summary ---
Author Organization Healthcare Address [address] [place] [address] Care Team Providers Care Manager Business Management Name Role Phone Unavailable Primary Care Provider [...] r (1 - 1-dose 75+ series) 08/30/2011 [id number] Vaccine (1 - 20 24-25 season) 2023 [...]
[2024-11-27 08:53] LABS: Iron 90 ug/dL (49-181)
[2024-11-27 09:03] LABS: Total Iron Binding Capacity 328 ug/dL (261-462)
== END 2024-11-27 23:59 | disposition home or self-care (01) ==
LOC: LAB 07:49
PROVIDERS: Visit Provider Internal Medicine Cardiovascular Disease
DX: D50.9 Iron deficiency anemia, unspecified (principal)
CPT/HCPCS: 36415; 83540; 83550